=== PATIENT | male | born 1955 | race Caucasian/White ===

== ENCOUNTER 2024-06-01 17:49 | Emergency (ER) | payer BC, MEDICARE ==
[~2024-06-01] VITALS: Ht 175.3 cm; Wt 51.4 kg
[2024-06-01] MEDS ORDERED: SERT-141 PO (18:12)
[2024-06-01] MEDS: PERCOCET 5MG/325MG TAB PO ONE (22:13)
[2024-06-01] MEDS: tiZANidine 4 MG TAB PO ONE (22:44)
[2024-06-01] MEDS ORDERED: PERC5TAB12 PO (23:20)
[2024-06-01] MEDS: OXYCODONE/APAP 5MG/325MG(HOME DOSE PACK) PO ONE (23:37)
[2024-06-01 23:54] VITALS: BP 102/49; TEMP 96.8; O2SAT 100
== END 2024-06-01 23:55 | disposition home or self-care (01) ==
LOC: M ED 17:49
DX: S42.332A Displaced oblique fracture of shaft of humerus, left arm, initial encounter for closed fracture (principal); W00.9XXA Unspecified fall due to ice and snow, initial encounter; M81.0 Age-related osteoporosis without current pathological fracture; F32.9 Major depressive disorder, single episode, unspecified; F12.10 Cannabis abuse, uncomplicated; Y92.9 Unspecified place or not applicable; Y93.89 Activity, other specified; Y99.9 Unspecified external cause status

== ENCOUNTER → 2024-06-04 | Outpatient (CLI) | payer MEDICARE ==
[~2024-06-04] MED LIST: PERC5TAB12 PO; SERT-141 PO
== END ==
LOC: M SOG 08:03
PROVIDERS: ATTEND Orthopaedic Surgery
DX: S42.295A Other nondisplaced fracture of upper end of left humerus, initial encounter for closed fracture (principal)

== ENCOUNTER → 2024-06-09 | Outpatient (CLI) | payer MEDICARE | LOC: M SOG 08:01 | PROVIDERS: ATTEND Orthopaedic Surgery | DX: S42.332A Displaced oblique fracture of shaft of humerus, left arm, initial encounter for closed fracture (principal); X58.XXXA Exposure to other specified factors, initial encounter; Y92.9 Unspecified place or not applicable ==

== ENCOUNTER → 2024-06-11 | Outpatient (REF) | payer MEDICARE ==
[~2024-06-11] MED LIST changes: +ACET-897 PO; +BISAC5TA PO; +CYAN-11 PO; +D3 M1CAP2 PO; +HYDR-3713 PO; +IBUP-1022 PO; +IRON65TA2 PO; +MULT-90 PO; +tumeric PO
[2024-06-11 16:43] LABS: BASO % 0.7 % (0.0-1.0); EOS % 0.7 % (0.0-3.0); HEMATOCRIT 34.2 % (42.0-52.0); LYMPH # 0.6 10^3/uL (1.5-5.0); LYMPH % 14.7 % (24.0-44.0); MEAN CORPUSCULAR HEMOGLOBIN 31.7 pg (27.0-33.0); MEAN CORPUSCULAR HGB CONC 32.2 g/dl (32.0-36.5); MEAN CORPUSCULAR VOLUME 98.6 fl (80.0-96.0); MONO # 0.4 10^3/uL (0.0-0.8); MONO % 9.1 % (2.0-8.0); NEUTROPHILS % 74.6 % (36.0-66.0); PLATELET COUNT, AUTOMATED 249 10^3/uL (150-450); RED BLOOD COUNT 3.47 10^6/uL (4.30-6.10); WHITE BLOOD COUNT 4.1 10^3/uL (4.0-10.0)
[2024-06-11 16:50] LABS: ALBUMIN 3.3 G/DL (3.2-5.2); ALKALINE PHOSPHATASE 54 U/L (40-129); ALT/SGPT 31 U/L (7.0-40); AST/SGOT 23 U/L (<34); BILIRUBIN,TOTAL 0.3 MG/DL (0.3-1.2); BLOOD UREA NITROGEN 21 MG/DL (9-23); CARBON DIOXIDE LEVEL 30 MMOL/L (20-31); CHLORIDE LEVEL 107 MMOL/L (98-107); CREATININE FOR GFR 0.71 MG/DL (0.70-1.30); GLOMERULAR FILTRATION RATE > 60.0 (>49); GLUCOSE, FASTING 90 MG/DL (74-106); POTASSIUM SERUM 4.4 MMOL/L (3.5-5.1); SODIUM LEVEL 142 MMOL/L (136-145); TOTAL PROTEIN 6.1 G/DL (5.7-8.2)
[2024-06-11 16:53] LABS: TOTAL 25(OH) VITAMIN D 68.7 NG/ML (20.0-100.0)
[2024-06-11 17:07] LABS: INR 0.99; PROTHROMBIN TIME 13.4 SECONDS (12.5-14.5)
== END ==
LOC: M LABDRAWC 16:26
PROVIDERS: ATTEND Orthopaedic Surgery
DX: S42.332A Displaced oblique fracture of shaft of humerus, left arm, initial encounter for closed fracture (principal); W18.30XA Fall on same level, unspecified, initial encounter; Y92.009 Unspecified place in unspecified non-institutional (private) residence as the place of occurrence of the external cause

== ENCOUNTER 2024-06-15 09:06 | Day surgery (SDC) | payer MEDICARE ==
[~2024-06-15] VITALS: Ht 175.3 cm; Wt 58.1 kg
[2024-06-15] MEDS ORDERED: LR 1,000 ML IV SCH (10:15)
[2024-06-15 10:17] VITALS: BP 109/56; TEMP 98.2; O2SAT 98
[2024-06-15] MEDS ORDERED: MIDAZOLAM INJ 2MG/2ML VIAL As Ordered ONE (10:47)
[2024-06-15] MEDS ORDERED: fentaNYL 100 MCG/2 ML INJECTION As Ordered ONE (10:47)
[2024-06-15] MEDS ORDERED: SUGAMMADEX SODIUM 500 MG/5 ML VIAL (BRIDION) As Ordered ONE (10:47)
[2024-06-15] MEDS ORDERED: propofoL 200 MG/20 ML VIAL As Ordered ONE (10:47)
[2024-06-15] MEDS ORDERED: ROCURONIUM BROMIDE 50MG/5ML VIAL As Ordered ONE (10:47)
[2024-06-15] MEDS ORDERED: ONDANSETRON 4MG 2ML VIAL As Ordered ONE (10:48)
[2024-06-15] MEDS ORDERED: ceFAZolin SOD 2 GM in IV 1 EA IV SCH (12:00)
[2024-06-15] MEDS ORDERED: PERCOCET 5MG/325MG TAB PO PRN ×2 (12:00)
[2024-06-15] MEDS ORDERED: ONDANSETRON 4MG 2ML VIAL IV PRN (12:00)
[2024-06-15] MEDS ORDERED: ACETAMINOPHEN 325 MG TAB PO PRN (12:00)
[2024-06-15] MEDS ORDERED: DEXTROSE 50% 50ML SYRINGE IV PRN (12:05)
[2024-06-15] MEDS ORDERED: GLUCOSE 4 GM CHEW PO PRN (12:05)
[2024-06-15] MEDS ORDERED: GLUCAGON INJ 1MG VIAL SC PRN (12:05)
[2024-06-15] MEDS ORDERED: INSULIN LISPRO (NovoLOG) PER UNIT SC SCH ×2 (17:30→21:00)
[2024-06-15] MEDS ORDERED: ASPIRIN 81MG ENTERIC TABLET PO SCH (21:00)
[2024-06-16] MEDS ORDERED: SERTRALINE HCL 50 MG TAB PO SCH (09:00)
== END 2024-06-15 10:17 | disposition home or self-care (01) ==
LOC: M SDC 09:06 → M RR INP 09:07 → UNDOADMOB 09:07 → M SDC 10:17
PROVIDERS: ATTEND Orthopaedic Surgery
DX: S42.202A Unspecified fracture of upper end of left humerus, initial encounter for closed fracture (principal); Z53.9 Procedure and treatment not carried out, unspecified reason; X58.XXXA Exposure to other specified factors, initial encounter; Y93.9 Activity, unspecified; Y92.9 Unspecified place or not applicable

== ENCOUNTER → 2024-06-25 | Outpatient (CLI) | payer MEDICARE | LOC: M SOG 07:53 | PROVIDERS: ATTEND Orthopaedic Surgery | DX: S42.302A Unspecified fracture of shaft of humerus, left arm, initial encounter for closed fracture (principal); Y93.9 Activity, unspecified; Y92.9 Unspecified place or not applicable ==

== ENCOUNTER → 2024-07-09 | Outpatient (CLI) | payer MEDICARE | LOC: M SOG 07:53 | PROVIDERS: ATTEND Orthopaedic Surgery | DX: S42.202D Unspecified fracture of upper end of left humerus, subsequent encounter for fracture with routine healing (principal); M25.522 Pain in left elbow ==

== ENCOUNTER → 2024-08-20 | Outpatient (CLI) | payer MEDICARE | LOC: M SOG 07:49 | PROVIDERS: ATTEND Orthopaedic Surgery | DX: S42.202D Unspecified fracture of upper end of left humerus, subsequent encounter for fracture with routine healing (principal) ==